=== PATIENT | male | born 1945 | race Asian ===

== ENCOUNTER 2019-10-29 10:12 | Emergency (ER) | payer MEDICARE, MEDICAID ==
[~2019-10-29] VITALS: Ht 157.5 cm; Wt 77.3 kg
[~2019-10-29 10:12] MED LIST: ASPI-728 PO; FURO20 PO; GLIP5 PO; LISI-622 PO; METF-960 PO
[2019-10-29] MEDS ORDERED: FINA-27 PO (10:21)
[2019-10-29] MEDS ORDERED: METO-558 PO (10:21)
[2019-10-29] MEDS ORDERED: APIX5TAB PO (10:21)
[2019-10-29] MEDS ORDERED: LISI-662 PO (10:21)
[2019-10-29] MEDS ORDERED: MONT10TA21 PO (10:21)
[2019-10-29] MEDS ORDERED: DOXA1 PO (10:21)
[2019-10-29] MEDS ORDERED: SIMV-259 PO (10:21)
[2019-10-29] MEDS ORDERED: AMLO-257 PO (10:21)
[2019-10-29] MEDS ORDERED: DiphenhydrAMINE HCL 50 MG/ML VIAL IVP ONE (11:30)
[2019-10-29 11:43] LABS: BASOPHILS % (AUTO) 1.2 % (0.0-2.0); EOSINOPHILS % (AUTO) 5.5 % (1.0-6.0); HEMATOCRIT 39.8 % (41-53); HEMOGLOBIN 13.6 g/dL (13.5-17.5); LYMPHOCYTES # (AUTO) 1.4 K/uL (1.0-4.8); LYMPHOCYTES % (AUTO) 21.8 % (22.0-44.0); MEAN CORPUSCULAR HEMOGLOBIN 31.9 pg (26.0-34.0); MEAN CORPUSCULAR HGB CONC 34.3 G/dL (31.0-37.0); MEAN CORPUSCULAR VOLUME 93 fL (80-100); MONOCYTES # (AUTO) 0.6 K/uL (0.1-1.0); MONOCYTES % (AUTO) 9.8 % (2.0-9.0); NEUTROPHILS # (AUTO) 3.9 K/uL (1.8-7.7); NEUTROPHILS % (AUTO) 61.7 % (40.0-70.0); PLATELET COUNT (AUTO) 158 K/uL (150-450); RED BLOOD CELL COUNT(AUTO) 4.28 MIL/uL (4.50-5.90); RED CELL DISTRIBUTION WIDTH 13.6 % (11.5-14.5)
[2019-10-29 11:55] LABS: CALCIUM, TOTAL 9.1 mg/dL (8.8-10.5); CREATININE 1.24 mg/dL (0.60-1.30); POTASSIUM 3.7 mmol/L (3.5-5.1)
[2019-10-29 12:00] LABS: TOTAL PROTEIN, SERUM 7.8 g/dL (6.4-8.2)
[2019-10-29] MEDS ORDERED: ACETAMINOPHEN 325 MG TABLET PO PRN (12:00)
[2019-10-29] MEDS ORDERED: INSULIN LISPRO 100 UNITS/ML SQ PRN (12:15)
[2019-10-29] MEDS ORDERED: DEXTROSE 50%-WATER 25 GM/50 ML SYRINGE IVP PRN (12:15)
[2019-10-29] MEDS ORDERED: BUMETANIDE 0.25 MG/ML 4 ML VIAL IVP SCH (12:15)
[2019-10-29] MEDS ORDERED: HEPARIN SODIUM,PORCINE 5,000 UNITS/ML VIAL SQ SCH (16:00)
[2019-10-29 16:30] VITALS: BP 141/79
[2019-10-29] MEDS ORDERED: DOCUSATE SODIUM 100 MG CAPSULE PO SCH (21:00)
[2019-10-30] MEDS ORDERED: FAMOTIDINE 20 MG TABLET PO SCH (09:00)
[2019-10-30] MEDS ORDERED: ASPIRIN 81 MG CHEWABLE TABLET PO SCH (09:00)
== END 2019-10-29 16:30 | disposition short-term general hospital (02) ==
LOC: EMS 10:15
DX: R60.0 Localized edema (principal); I48.91 Unspecified atrial fibrillation; I50.9 Heart failure, unspecified; Z79.82 Long term (current) use of aspirin; Z79.84 Long term (current) use of oral hypoglycemic drugs; Z79.899 Other long term (current) drug therapy
CPT/HCPCS: 36415; 71045; 80053; 82962; 83880; 84484; 85025; 93005; 96374; 96375; 99285; J1200; J3490